=== PATIENT | female | born 1960 | race Caucasian/White ===

== ENCOUNTER 2023-12-27 12:39 | Outpatient (CLI) | payer OTHER ==
[~2023-12-27 12:39] MED LIST: ALEVE220 M1 PO; CEFADROXIL500 MG PO; ULTRACET PO
== END 2023-12-27 12:47 | disposition home or self-care (01) ==
LOC: RAD 12:39
DX: M25.50 Pain in unspecified joint (principal); M17.10 Unilateral primary osteoarthritis, unspecified knee; M25.569 Pain in unspecified knee

== ENCOUNTER 2025-01-31 08:49 | Outpatient (CLI) | payer OTHER | END 2025-01-31 08:59 | disposition home or self-care (01) | LOC: RAD 08:49 | DX: M17.0 Bilateral primary osteoarthritis of knee (principal); M51.34 Other intervertebral disc degeneration, thoracic region; M51.360 Other intervertebral disc degeneration, lumbar region with discogenic back pain only ==